=== PATIENT | female | born 1980 | race Caucasian/White ===

== ENCOUNTER 2022-01-08 20:43 | Emergency (ER) | payer OTHER ==
[~2022-01-08] VITALS: Ht 152.4 cm; Wt 84.1 kg
[~2022-01-08 20:43] MED LIST: APIDRA SOLOS100 U/ML SC; FASTIN30 MG PO; MOTRIN 600600 MG/TAB PO; PHENERGAN 25 TA25 MG PO; SENOKOT S 50 MG1 TAB PO; [UNRECOGNIZED DRUG - OTHER]
[2022-01-08 21:26] LABS: COLLECTION METHOD CLEAN CATCH
[2022-01-08 21:32] LABS: BASO % 0.3 % (0.0-2.0); EOS # 0.1 K/mm3 (0.0-0.7); EOS % 0.8 % (0.0-4.0); GRAN # 6.9 K/mm3 (1.4-6.5); GRAN % 65.3 % (42.2-75.2); HEMOGLOBIN 11.8 g/dl (12.5-16.0); LYMPH # 2.7 K/mm3 (1.2-3.4); LYMPH % 25.8 % (20.0-51.0); MEAN CELL VOLUME 87 fl (80.0-100.0); MEAN CORPUSCULAR HEMOGLOBIN 30 pg (27-31); MEAN CORPUSCULAR HGB CONC 34 g/dl (33.0-37.0); MEAN PLATELET VOLUME 10.2 fl (7.4-10.4); MONO # 0.8 K/mm3 (0.1-0.6); MONO % 7.5 % (1.7-9.3); PLATELET COUNT 321 K/mm3 (130-400); RED BLOOD COUNT 3.96 M/mm3 (4.10-5.30); REDCELL DISTRIBUTION WIDTH-CV 12.8 % (11.5-14.5)
[2022-01-08 21:34] LABS: HEMATOCRIT 34.4 % (37.0-47.0)
[2022-01-08 21:35] LABS: MUCOUS Present (NOT PRESENT); SQUAMOUS EPITHELIAL 0-2 /hpf (0-10); URINE BACTERIA Rare /hpf (NONE SEEN); URINE RBC >50 /hpf (0-2)
[2022-01-08 21:36] LABS: URINE APPEARANCE Clear (CLEAR/HAZY); URINE BLOOD 3+ (NEGATIVE); URINE COLOR Yellow (YELLOW); URINE GLUCOSE Negative (NEGATIVE); URINE KETONE Negative (NEGATIVE); URINE NITRATE Negative (NEGATIVE); URINE PROTEIN(semi-quant) Negative (NEGATIVE); URINE UROBILINOGEN 0.2 (NEGATIVE)
[2022-01-08 21:51] LABS: ALBUMIN 3.6 gm/dL (3.5-5.0); BILIRUBIN,TOTAL 0.2 mg/dL (0.2-1.2); C-REACTIVE PROTEIN 1.64 mg/dL (0.00-0.50); CALCIUM 9.3 mg/dL (8.4-10.2); CREATININE, serum 0.97 mg/dL (0.57-1.11); POTASSIUM 3.5 mmol/L (3.5-4.5); TOTAL PROTEIN 7.5 gm/dL (6.2-8.1)
[2022-01-08] MEDS ORDERED: ULTRAM 50MG TAB50 MG PO (22:41)
[2022-01-08 22:55] VITALS: BP 144/74; PULSE 83; TEMP 98.4
== END 2022-01-08 22:55 | disposition home or self-care (01) ==
LOC: COL.ER 20:43
PROVIDERS: Nurse Practitioner
DX: R10.2 Pelvic and perineal pain (principal); Z87.891 Personal history of nicotine dependence; Z32.02 Encounter for pregnancy test, result negative; Z28.311 Partially vaccinated for COVID-19
CPT/HCPCS: J1885; J2405; J7030